=== PATIENT | male | born 1950 | race African-American/Black ===

== ENCOUNTER → 2023-11-11 15:02 | Outpatient (REF) | payer MEDICARE, OTHER, SELFPAY | LOC: RAD 15:02 | PROVIDERS: ATTENDING PHYSICIAN Orthopaedic Surgery; FAMILY PHYSICIAN Internal Medicine | DX: M54.9 Dorsalgia, unspecified (principal) | CPT/HCPCS: 71250 ==

== ENCOUNTER 2024-05-26 09:20 | Emergency (ER) | payer MEDICARE, OTHER, SELFPAY ==
[2024-05-26 09:24] VITALS: BP 143/62
--- NOTE | 2024-05-26 10:16 | ED.GENMED ---
History of Present Illness
General
Chief Complaint: Fall
Source: patient
Time Seen by Provider: 05/26/24 10:06
History of Present Illness
History of Present Illness:
74yoM with a history of atrial fibrillation on Eliquis, hypertension, chronic pain on MS Contin presenting for evaluation after a fall 1 week ago. Patient was carrying groceries when he lost his balance and fell on his left lateral rib cage. He
denies any head injuries or loss of consciousness. Patient developed bruising to the ribs after the injury. He has been having mild pain over the past week which has acutely worsened over the past 24 hours. Pain is worse with movement and
breathing. He denies any shortness of breath, headache, neck pain, back pain, abdominal pain.
Past History
Past History
ED Past Medical History: Cancer (Followed at [facility] details are unclear), HTN, Hypothyroidism and Other (PE, sleep apnea)
ED Past Surgical History: Bowel resection, Orthopedic (bilateral hip replacement), Tonsilectomy and Other
Social History
Tobacco: Other
Alcohol: Other
Drug: Other
Personal: Other
Living: other
Employment: Other
Family History
Family History: Unable to obtain
Phy Exam
General Physical Exam
General Presentation: well appearing and no apparent distress
General age: appears stated age
General Skin: warm and dry
General Habitus: normal
General Mental: alert
ENT Exam
ENT Exam: normocephalic
Additional ENT: No cervical spine tenderness
Pulmonary Exam
Pulmonary Exam: lungs clear, no respiratory distress, no rales, no crackles, no rhonchi and other (+Ecchymosis noted to L lateral ribcage with tenderness. No crepitus. Bilateral breath sounds equal. )
Gastrointestinal Exam
Gastrointestinal Exam: non tender, soft and non distended
Neurological Exam
Neurological Exam: alert
[place] Coma Scale
Eye Opening: Spontaneous
Verbal Response: Oriented
Motor Response: Obeys Commands
GCS Total Score: 15
Skin Exam
Skin Exam: normal color and warm/dry
Psychiatric Exam
Psychiatric Exam: normal mood/affect
Course
Orders/Labs/Results
Orders:
Orders
05/26/24 09:29
Ribs, Left 3 View W/PA Chest CR [CR Ribs-left 3 Vw W/pa Chest] Urgent
Comment:
Reason For Exam: fall
05/26/24 10:13
CT Chest W/o Iv Contrast Urgent
Comment:
Reason For Exam: L lateral rib pain/ecchymosis
05/26/24 12:07
Incentive Spirometry [Rx Incentive Spirometry] [RESP] Urgent
Frequency: q1h while awake
Vital Signs
Initial and Last Documented VS:
Initial Vital Signs
Temp Pulse Resp BP Pulse Ox
97.8 F 85 16 143/62 96
05/26/24 09:24 12 09:24 12 09:24 05/26/24 09:24 05/26/24 09:24
Last Documented Vital Signs
Temp Pulse Resp BP Pulse Ox
97.8 F 85 16 143/62 96
05/26/24 09:24 05/26/24 09:24 05/26/24 09:24 05/26/24 09:24 05/26/24 09:24
MDM/Problems Addressed
Differential Diagnosis Includes:
74yoM here with L rib pain x 1 week after a fall. On Eliquis. VSS. He is well-appearing in no acute distress. There is ecchymosis noted to the left lateral chest wall with associated tenderness. No crepitus. No abdominal tenderness. Bilateral
breath sounds equal. Differential diagnosis includes but is not limited to: Rib contusion, rib fracture, pneumothorax, hemothorax
Initial ED plan: Rib series x-rays obtained in triage. No clear rib fracture seen on x-rays within limitations. Due to worsening pain over the past 24 hours, will proceed with CT chest.
*Critical Care Note
Total Time (30-74mins, 75-104mins- exclusive of procedures): Not Applicable
Update Note
Update Note:
CT shows a subtle nondisplaced fracture of the anterior left third rib. No pneumo or hemothorax seen. Patient already on medications for chronic pain including MS Contin. He was advised to add lidocaine patches and Tylenol as needed. Incentive
spirometer provided. Advised follow-up with PCP and ED return precautions discussed. He was discharged in stable condition.
ED Attending Note
-
Portions of this chart may have been created with voice recognition software.� Occasional wrong word or��sound alike� substitutions may have occurred due to the inherent limitations of voice recognition software.
Discharge Plan
Departure
Patient Disposition: Home (Routine Discharge)
Date of Disposition: 05/26/24
Time of Disposition: 12:05
Patient with high blood pressure during this ER visit?: Yes
Discharge Problem:
Closed fracture of rib of left side
Instructions: Rib fracture or bruised rib - ED discharge instructions
Prescriptions:
No Action
amlodipine 5 MG tablet
5 mg PO DAILY
levothyroxine 100 MCG tablet
100 mcg PO DAILY
Patient Comments:
02/16/2020-patient picked up on 01/27/2020
montelukast 10 MG tablet
10 mg PO QPM
paroxetine HCl 10 MG tablet
20 mg PO DAILY
fluticasone furoate-vilanterol [Breo Ellipta] 1 EACH blister with device
1 ea inhalation R DAILY
nortriptyline 25 MG capsule
50 mg PO HS
pregabalin 75 MG capsule
75 mg PO DAILY
Patient Comments:
02/16/2020- patient picked up on 11/20/2019 #180
morphine 60 MG tablet extended release
60 mg PO BID
Patient Comments:
02/16/2020-patient picked up on 12/20/2019 #60
warfarin [Jantoven] 7.5 MG tablet
7.5 mg PO SUMOWETHSA
warfarin [Jantoven] 2.5 MG tablet
2.5 mg PO TUFR
morphine 30 MG tablet
30 mg PO PRN PRN (Reason: pain)
losartan-hydrochlorothiazide 1 EACH tablet
1 ea PO DAILY
sennosides-docusate sodium [Senna Plus] 1 EACH tablet
1 ea PO BID
sulfamethoxazole-trimethoprim 1 EACH tablet
1 ea PO BID
azelastine 1 SPRAY aerosol,spray
2 spray intranasal BID
tiotropium bromide [Spiriva with HandiHaler] 18 MCG capsule, w/inhalation device
18 mcg IH DAILY
vitamins A,C,T-[id number]-nwzwbf [PreserVision AREDS] 1 CAP capsule
1 mg BID
ferrous gluconate 236 MG tablet
236 mg PO DAILY
Referrals:
Marshal Jaramillo MD [Family Provider] -
Activity Restrictions/Additional Instructions:
Use incentive spirometer every hour while awake. Continue taking your home pain medications. You may also use lidocaine patches daily (12 hours on, 12 hours off) and Tylenol as needed.
Please follow-up with your family doctor. Return to the ER with any worsening symptoms.
Interventions
Interventions:
*Risk Screen - Suicide Last Done: 05/26/24 09:24
*General Assessment Last Done: 05/26/24 09:24
*Neglect/Abuse Screening Last Done: 05/26/24 09:24
*Nursing Disposition Last Done: 05/26/24 12:30
ED-Musculoskeletal Assessment Last Done: 05/26/24 10:00
ED- Neurological Assessment Last Done: 05/26/24 10:00
ED-Skin Assessment Last Done: 05/26/24 10:00
Discharge Date and Time
Discharge Date/Time: 05/26/24 12:30
Print Language: MAORI
--- NOTE | 2024-05-26 12:29 | EDRN ---
Incentive spirometer provided and pt verbalized understanding of its use prior to d/c
== END 2024-05-26 12:30 | disposition home or self-care (01) ==
LOC: EMR 09:20
PROVIDERS: EMERGENCY PHYSICIAN Emergency Medicine; FAMILY PHYSICIAN Internal Medicine
DX: S22.32XA Fracture of one rib, left side, initial encounter for closed fracture (principal); W01.0XXA Fall on same level from slipping, tripping and stumbling without subsequent striking against object, initial encounter; I48.91 Unspecified atrial fibrillation; I10 Essential (primary) hypertension; Z79.01 Long term (current) use of anticoagulants
CPT/HCPCS: 99283; 71101; 71250

== ENCOUNTER 2024-06-15 07:42 | Emergency (ER) | payer MEDICARE, OTHER, SELFPAY ==
[2024-06-15 07:42] VITALS: BMI 33.6
[2024-06-15 07:47] VITALS: BP 170/92
--- NOTE | 2024-06-15 08:19 | ED.GENMED ---
History of Present Illness
General
Chief Complaint: Abdominal Symptoms
Source: patient and spouse
Exam Limitations: none
Time Seen by Provider: 06/15/24 08:05
History of Present Illness
History of Present Illness:
74yoM with a history of prior pulmonary embolism on Eliquis, hypertension, insulin-dependent type 2 diabetes, COPD, chronic pain on opioids, and remote history of colon cancer s/p resection currently in remission presenting with his for
evaluation of vomiting. Symptoms initially began after New Years. He was constipated prior to this and states the 'dam broke' and he was having diarrhea for a few days. This has resolved and he has not had a bowel movement in the past few days. He
is now having nausea and vomiting for the past 3 days. He is vomiting up phlegm. He has been unable to keep down his medications due to his symptoms. He also reports lower abdominal discomfort. He feels very dehydrated and is urinating less than
usual. He denies any fevers, URI symptoms, shortness of breath, chest pain, hematemesis.
Past History
Past History
ED Past Medical History: Cancer (Followed at [facility] details are unclear), HTN, Hypothyroidism and Other (PE, sleep apnea)
ED Past Surgical History: Bowel resection, Orthopedic (bilateral hip replacement), Tonsilectomy and Other
Social History
Tobacco: Other
Alcohol: Other
Drug: Other
Personal: Other
Living: other
Employment: Other
Family History
Family History: Unable to obtain
Phy Exam
Physical Exam
Physical Exam:
Retching on exam, appears fatigued
General Physical Exam
General age: appears stated age
General Skin: warm and dry
General Habitus: normal
General Mental: alert
ENT Exam
ENT Exam: normocephalic
Cardiovascular Exam
Cardiovascular Exam: regular rate/rhythm
Pulmonary Exam
Pulmonary Exam: no respiratory distress, no crackles, no stridor and other (Mild expiratory wheezes)
Gastrointestinal Exam
Gastrointestinal Exam: soft, non distended and other (+Mild tenderness in LLQ. Abdomen soft, non-distended. No rebound or guarding.)
Neurological Exam
Neurological Exam: alert
[place] Coma Scale
Eye Opening: Spontaneous
Verbal Response: Oriented
Motor Response: Obeys Commands
GCS Total Score: 15
Skin Exam
Skin Exam: normal color and warm/dry
Psychiatric Exam
Psychiatric Exam: normal mood/affect
Course
Orders/Labs/Results
Orders:
Orders
06/15/24 08:17
CT Abd/pel W Iv And Oral Contr Urgent
Comment:
Reason For Exam: LLQ pain, vomiting, hx of colon resection
0.9% Sodium Chloride 1000 ml [Nss] 1,000 ml IV BOLUS
Iohexol [Omnipaque] See Protocol PO NOW STA
Ondansetron Injectable [Zofran] 4 mg IV NOW STA
06/15/24 08:18
Electrocardiogram (*1) Urgent
Reason for Study: QTc Monitoring
EKG- Treatment ONCE
06/15/24 08:37
Basic Metabolic Panel Urgent
Complete Blood Count/With Diff Urgent
Lipase Urgent
06/15/24 09:11
LFT [Hutjd-Yien-Wepwfhi] Urgent
Magnesium Urgent
Potassium Urgent
06/15/24 12:12
Electrocardiogram (*1) Urgent
Reason for Study: QTc Monitoring
EKG- Treatment ONCE
Abnormal Lab Results
06/15/24 06/15/24
08:37 09:11
Hgb 12.3 L g/dL
(13.0-18.0)
MCV 68.3 L fL
(80.0-94.0)
MCH 21.4 L pg
(27.0-31.0)
MCHC 31.4 L g/dL
(33.0-37.0)
RDW 18.5 H %
(11.5-14.5)
Lymphocytes % 20.2 L %
(20.5-51.1)
Glucose 141 H mg/dl
(70-99)
Alkaline Phosphatase 177 H U/L
(38-126)
06/15/24 08:37
06/15/24 09:11
Vital Signs
Initial and Last Documented VS:
Initial Vital Signs
Temp Pulse Resp Pulse Ox
98.9 F 78 18 98
06/15/24 07:43 06/15/24 07:43 06/15/24 07:43 06/15/24 07:43
Last Documented Vital Signs
Temp Pulse Resp BP Pulse Ox
98.2 F 69 18 146/78 99
06/15/24 10:00 06/15/24 13:15 06/15/24 13:15 06/15/24 13:15 06/15/24 13:15
MDM/Problems Addressed
Differential Diagnosis Includes:
74yoM here with vomiting x 3 days. Unable to keep down medications and feels dehydrated. Also c/o lower abd pain. He is hypertensive with otherwise normal vital signs. He is retching on exam and appears fatigued but non-toxic. No signs of
peritonitis on abdominal exam. Differential diagnosis includes but is not limited to: gastroenteritis, diverticulitis, SBO, dehydration
Initial ED plan: Check abdominal labs, magnesium, EKG, and CT abdomen with IV/PO contrast. IV Zofran and fluid bolus for symptoms.
*EKG
Interpreted by ED Provider?: Yes
EKG Intrepretation Date: 06/15/24
Heart Rate: 75
Rate: normal
Rhythm: sinus and PVC's
Cobb: normal axis
Interval: long QT (QTc 507)
QRS Pattern: normal QRS
Ischemia: no ischemia
*Critical Care Note
Total Time (30-74mins, 75-104mins- exclusive of procedures): Not Applicable
Update Note
Update Note:
Labs overall unremarkable including normal white count, electrolytes, and renal function. EKG shows normal sinus rhythm with a prolonged QTc at 507. Patient already received a dose of IV Zofran prior to EKG. CT shows new mild wall thickening of
the terminal ileum which can be seen in IBD. There is also mild diffuse bladder wall thickening although he denies any urinary symptoms. Several other incidental findings noted including pulmonary nodules and evidence of chronic pancreatitis.
Findings discussed at length with patient and and they were provided with a copy of his CT scan report. Patient follows with Karri Leavitt and receives colonoscopies every 6 months due to his history of colon cancer. He denies any prior history
of IBD and his last colonoscopy 4 months ago came back normal. Patient able to tolerate oral contrast without any vomiting. Patient feels well for discharge. Repeat EKG obtained and QTc improved to 486. Patient was given a prescription for
Zofran. Supportive care discussed. Advised close PCP follow-up and ED return precautions discussed. He was discharged in stable condition.
ED Attending Note
-
Portions of this chart may have been created with voice recognition software.� Occasional wrong word or��sound alike� substitutions may have occurred due to the inherent limitations of voice recognition software.
Discharge Plan
Departure
Patient Disposition: Home (Routine Discharge)
Date of Disposition: 06/15/24
Time of Disposition: 12:54
Patient with high blood pressure during this ER visit?: Yes
Discharge Problem:
Nausea & vomiting
Instructions: Nausea and Vomiting, Adult (DC)
Prescriptions:
New
ondansetron 4 mg tablet,disintegrating
4 mg PO Q8H PRN (Reason: nausea and vomiting) Qty: 9 0RF
No Action
amlodipine 5 MG tablet
5 mg PO DAILY
levothyroxine 100 MCG tablet
100 mcg PO DAILY
Patient Comments:
02/16/2020-patient picked up on 01/27/2020
montelukast 10 MG tablet
10 mg PO QPM
paroxetine HCl 10 MG tablet
20 mg PO DAILY
fluticasone furoate-vilanterol [Breo Ellipta] 1 EACH blister with device
1 ea inhalation R DAILY
nortriptyline 25 MG capsule
50 mg PO HS
pregabalin 75 MG capsule
75 mg PO DAILY
Patient Comments:
02/16/2020- patient picked up on 11/20/2019 #180
morphine 60 MG tablet extended release
60 mg PO BID
Patient Comments:
02/16/2020-patient picked up on 12/20/2019 #60
warfarin [Jantoven] 7.5 MG tablet
7.5 mg PO SUMOWETHSA
warfarin [Jantoven] 2.5 MG tablet
2.5 mg PO TUFR
morphine 30 MG tablet
30 mg PO PRN PRN (Reason: pain)
losartan-hydrochlorothiazide 1 EACH tablet
1 ea PO DAILY
sennosides-docusate sodium [Senna Plus] 1 EACH tablet
1 ea PO BID
sulfamethoxazole-trimethoprim 1 EACH tablet
1 ea PO BID
azelastine 1 SPRAY aerosol,spray
2 spray intranasal BID
tiotropium bromide [Spiriva with HandiHaler] 18 MCG capsule, w/inhalation device
18 mcg IH DAILY
vitamins A,C,G-gsbs-advunl [PreserVision AREDS] 1 CAP capsule
1 mg BID
ferrous gluconate 236 MG tablet
236 mg PO DAILY
Referrals:
Marshal Jaramillo MD [Family Provider] -
Activity Restrictions/Additional Instructions:
Take Zofran as needed for nausea. Drink plenty of fluids and eat a bland diet (rice, applesauce, toast).
Please follow-up with your family doctor and discuss your CT results. Return to the ER with any worsening symptoms or if you are unable to keep down fluids.
Interventions
Interventions:
*Risk Screen - Suicide Last Done: 06/15/24 07:43
*General Assessment Last Done: 06/15/24 07:43
*Neglect/Abuse Screening Last Done: 06/15/24 07:43
ED- Fall Risk Assessment Last Done: 06/15/24 09:06
*Nursing Disposition Last Done: 06/15/24 13:12
BG-Mgrgsj-Wafljxzfqy Assessment Last Done: 06/15/24 09:06
ED- Cardiac Assessment Last Done: 06/15/24 09:06
ED- Neurological Assessment Last Done: 06/15/24 09:06
ED- Pulmonary Assessment Last Done: 06/15/24 09:06
Discharge Date and Time
Discharge Date/Time: 06/15/24 13:23
Print Language: GUYANESE
[2024-06-15] MEDS: OMNIPAQUE 50 ML PO (08:30)
[2024-06-15] MEDS: ZOFRAN 4 MG IV (08:33)
[2024-06-15] MEDS: NSS 1000 IV (08:34)
[2024-06-15 08:40] VITALS: BP 190/92
[2024-06-15 09:00] VITALS: BP 212/79
[2024-06-15 09:02] VITALS: BP 179/79
[2024-06-15 09:05] LABS: % Basophils 0.3 % (0-2); % Immature Granulocytes 0.2 % (0-0.5); % Lymphocytes 20.2 % (20.5-51.1); % Monocytes 5.2 % (1.7-9.3); % Neutrophils 74.1 % (42.2-75.2); Absolute Lymphocytes 1.2 10^3/uL (1.2-3.4); Absolute Monocytes 0.3 10^3/uL (0.1-0.6); Absolute Neutrophils 4.4 10^3/uL (1.4-6.5); Hematocrit 39.2 % (39.0-52.0); Hemoglobin 12.3 g/dL (13.0-18.0); Mean Corp Hgb Conc. 31.4 g/dL (33.0-37.0); Mean Corpuscular Hgb 21.4 pg (27.0-31.0); Mean Corpuscular Volume 68.3 fL (80.0-94.0); Nucleated Red Blood Cells % 0 % (-); Platelet Count 214 10^3/uL (130-400); Red Blood Cell Count 5.74 10^6/uL (4.70-6.10); Red Cell Dist. Width 18.5 % (11.5-14.5); White Blood Cell Count 5.9 10^3/uL (4.8-10.8)
[2024-06-15 09:13] LABS: Blood Urea Nitrogen 15 mg/dl (9-20); Calcium 9.6 mg/dl (8.4-10.2); Carbon Dioxide 26 mmol/L (22-30); Chloride 102 mmol/L (98-107); Estimated Creatinine Clearance 83 ml/min; Glucose 141 mg/dl (70-99); Lipase 54 U/L (23-300); Sodium 139 mmol/L (135-145); eGFR > 60.00
[2024-06-15 09:33] LABS: ALT (SGPT) 26 U/L (0-50); AST (SGOT) 28 U/L (17-59); Albumin 4.3 g/dl (3.5-5.0); Alkaline Phosphatase 177 U/L (38-126); Potassium 3.7 mmol/L (3.5-5.1); Total Bilirubin 0.7 mg/dl (0.2-1.3); Total Protein 6.9 g/dl (6.3-8.2)
[2024-06-15 10:04] LABS: Magnesium 2.3 mg/dl (1.6-2.3)
[2024-06-15 13:15] VITALS: BP 146/78
== END 2024-06-15 13:23 | disposition home or self-care (01) ==
LOC: EMR 07:42
PROVIDERS: Physician Assistant; EMERGENCY PHYSICIAN Emergency Medicine; FAMILY PHYSICIAN Internal Medicine
DX: R11.2 Nausea with vomiting, unspecified (principal); I10 Essential (primary) hypertension; E11.9 Type 2 diabetes mellitus without complications; J44.9 Chronic obstructive pulmonary disease, unspecified; E03.9 Hypothyroidism, unspecified; G47.30 Sleep apnea, unspecified; G89.29 Other chronic pain; Z85.038 Personal history of other malignant neoplasm of large intestine; Z86.711 Personal history of pulmonary embolism; Z79.4 Long term (current) use of insulin; Z79.01 Long term (current) use of anticoagulants; Z90.49 Acquired absence of other specified parts of digestive tract; Z79.891 Long term (current) use of opiate analgesic
CPT/HCPCS: 96374; 96361; 99284; 74177; 80048; 80076; 83690; 83735; 84132; 85025; 93005; Q9967

== ENCOUNTER → 2024-10-23 09:27 | Outpatient (REF) | payer MEDICARE, OTHER, SELFPAY ==
[2024-10-23 12:12] LABS: % Basophils 0.6 % (0-2); % Immature Granulocytes 0.2 % (0-0.5); % Lymphocytes 19.2 % (20.5-51.1); % Monocytes 9.5 % (1.7-9.3); % Neutrophils 65.5 % (42.2-75.2); Absolute Eosinophils 0.3 10^3/uL (0-0.7); Absolute Lymphocytes 1.3 10^3/uL (1.2-3.4); Absolute Monocytes 0.6 10^3/uL (0.1-0.6); Absolute Neutrophils 4.3 10^3/uL (1.4-6.5); Hematocrit 29.5 % (39.0-52.0); Mean Corp Hgb Conc. 30.5 g/dL (33.0-37.0); Mean Corpuscular Hgb 19.7 pg (27.0-31.0); Mean Corpuscular Volume 64.7 fL (80.0-94.0); Nucleated Red Blood Cells % 0 % (-); Platelet Count 232 10^3/uL (130-400); Red Blood Cell Count 4.56 10^6/uL (4.70-6.10); Red Cell Dist. Width 16.7 % (11.5-14.5); White Blood Cell Count 6.6 10^3/uL (4.8-10.8)
[2024-10-23 12:15] LABS: Urine Albumin 3+ (Neg - Trace); Urine Bilirubin Negative (Negative); Urine Character Clear (Clear); Urine Color Yellow; Urine Glucose Negative (Negative); Urine Ketone Negative (Negative); Urine Leukocyte Negative (Negative); Urine Nitrite Negative (Negative); Urine Occult Blood 1+ (Negative); Urine Specific Gravity 1.015 (<1.030); Urine Urobilinogen 1+ (Neg - 1+); Urine pH 6.5 (5.0-9.0)
[2024-10-23 12:39] LABS: Urine Bacteria Few (Negative); Urine Red Blood Cell 0-2 /HPF (0-2); Urine Squamous Cell 26-30 /LPF (Few); Urine White Cell 0-2 /HPF (0-5)
[2024-10-23 12:47] LABS: ALT (SGPT) 16 U/L (0-50); AST (SGOT) 18 U/L (17-59); Albumin 3.6 g/dl (3.5-5.0); Alkaline Phosphatase 140 U/L (38-126); Blood Urea Nitrogen 14 mg/dl (9-20); Calcium 9.5 mg/dl (8.4-10.2); Carbon Dioxide 31 mmol/L (22-30); Chloride 103 mmol/L (98-107); Direct Bilirubin 0.2 mg/dl (0.0-0.4); GGTP 24 U/L (15-73); Glucose 131 mg/dl (70-99); HDL Cholesterol 33 mg/dl; LDL Cholesterol, Calculated 38 mg/dl; Sodium 142 mmol/L (135-145); Total Bilirubin 0.6 mg/dl (0.2-1.3); Total Cholesterol 86 mg/dl (50-199); Total Protein 6.6 g/dl (6.3-8.2); Triglyceride 77 mg/dl (10-149); Very Low Density Lipoprotein 15 mg/dl (0-30); eGFR > 60.00
[2024-10-24 03:09] LABS: Glycohemoglobin (HgbA1c) 7.5 % (4.0-5.6)
== END ==
LOC: HWLAB 09:27
PROVIDERS: ATTENDING PHYSICIAN Internal Medicine
DX: R55 Syncope and collapse (principal); I95.1 Orthostatic hypotension; N17.9 Acute kidney failure, unspecified; E11.9 Type 2 diabetes mellitus without complications; K74.69 Other cirrhosis of liver; G60.8 Other hereditary and idiopathic neuropathies; C18.9 Malignant neoplasm of colon, unspecified; Z86.711 Personal history of pulmonary embolism; R79.89 Other specified abnormal findings of blood chemistry; Z87.19 Personal history of other diseases of the digestive system
CPT/HCPCS: 80053; 80061; 81003; 81015; 82248; 82977; 83036; 85025

== ENCOUNTER → 2024-10-26 11:33 | Outpatient (REF) | payer MEDICARE, OTHER, SELFPAY ==
[2024-10-26 16:32] LABS: Urine Albumin 1+ (Neg - Trace); Urine Bilirubin Negative (Negative); Urine Character Clear (Clear); Urine Color Yellow; Urine Glucose Negative (Negative); Urine Ketone Negative (Negative); Urine Leukocyte Negative (Negative); Urine Nitrite Negative (Negative); Urine Occult Blood Negative (Negative); Urine Urobilinogen Negative (Neg - 1+)
[2024-10-26 16:42] LABS: % Basophils 0.7 % (0-2); % Eosinophils 7.4 % (0-6); % Immature Granulocytes 0.7 % (0-0.5); % Lymphocytes 21.6 % (20.5-51.1); % Monocytes 11.2 % (1.7-9.3); % Neutrophils 58.4 % (42.2-75.2); Absolute Basophils 0.1 10^3/uL (0-0.2); Absolute Eosinophils 0.5 10^3/uL (0-0.7); Absolute Immature Granulocytes 0.1 10^3/uL (0-0.05); Absolute Lymphocytes 1.5 10^3/uL (1.2-3.4); Absolute Monocytes 0.8 10^3/uL (0.1-0.6); Absolute Neutrophils 4.1 10^3/uL (1.4-6.5); Hematocrit 28.8 % (39.0-52.0); Hemoglobin 8.6 g/dL (13.0-18.0); Mean Corp Hgb Conc. 29.9 g/dL (33.0-37.0); Mean Corpuscular Hgb 19.6 pg (27.0-31.0); Mean Corpuscular Volume 65.6 fL (80.0-94.0); Nucleated Red Blood Cells % 0 % (-); Platelet Count 215 10^3/uL (130-400); Red Blood Cell Count 4.39 10^6/uL (4.70-6.10); Red Cell Dist. Width 16.9 % (11.5-14.5); Reticulocyte Count 1.1 % (0.4-2.8); White Blood Cell Count 7.1 10^3/uL (4.8-10.8)
[2024-10-26 16:45] LABS: Iron 34 ug/dl (49-181)
[2024-10-26 16:47] LABS: Urine Squamous Cell >30 /LPF (Few)
[2024-10-26 16:48] LABS: Urine Bacteria Few (Negative); Urine Calcium Oxalate Crystals Seen; Urine Red Blood Cell 0-2 /HPF (0-2); Urine White Cell 0-2 /HPF (0-5)
[2024-10-26 16:54] LABS: Percent Saturation 13 % (20-50); Total Iron Binding Capacity 257 ug/dl (261-462)
== END ==
LOC: HWLAB 11:33
PROVIDERS: ATTENDING PHYSICIAN Internal Medicine; REFERRING PHYSICIAN Internal Medicine
DX: D50.9 Iron deficiency anemia, unspecified (principal); R80.9 Proteinuria, unspecified
CPT/HCPCS: 36415; 81003; 81015; 83540; 83550; 85025; 85045

== ENCOUNTER 2024-11-14 09:33 | Outpatient (RCR) | payer MEDICARE, OTHER, SELFPAY ==
[2024-11-07 10:00] VITALS: BP 123/57
[2024-11-07] MEDS: INJECTAFER 265 MG IV (10:25)
[2024-11-07 11:25] VITALS: BP 135/65
[2024-11-14 09:52] VITALS: BP 138/65
[2024-11-14] MEDS: INJECTAFER 265 MG IV (10:07)
[2024-11-14 11:25] VITALS: BP 129/66
== END 2024-11-15 09:22 | disposition home or self-care (01) ==
LOC: OID 09:33
PROVIDERS: ATTENDING PHYSICIAN Internal Medicine
DX: D50.1 Sideropenic dysphagia (principal)
CPT/HCPCS: 96365; J1439

== ENCOUNTER → 2025-01-18 09:43 | Outpatient (REF) | payer MEDICARE, OTHER, SELFPAY ==
[2025-01-18 11:20] LABS: Urine Character Clear (Clear)
[2025-01-18 11:29] LABS: Urine Red Blood Cell 0-2 /HPF (0-2); Urine Squamous Cell 26-30 /LPF (Few); Urine White Cell 0-2 /HPF (0-5)
[2025-01-18 11:40] LABS: Hematocrit 35.8 % (39.0-52.0); Hemoglobin 10.4 g/dL (13.0-18.0); Mean Corp Hgb Conc. 29.1 g/dL (33.0-37.0); Mean Corpuscular Volume 72.2 fL (80.0-94.0); Nucleated Red Blood Cells % 0 % (-); Platelet Count 127 10^3/uL (130-400); Red Cell Dist. Width 20.7 % (11.5-14.5)
[2025-01-18 12:14] LABS: ALT (SGPT) 16 U/L (0-50); AST (SGOT) 19 U/L (17-59); Albumin 4.2 g/dl (3.5-5.0); Alkaline Phosphatase 127 U/L (38-126); Blood Urea Nitrogen 14 mg/dl (9-20); Calcium 9.4 mg/dl (8.4-10.2); Carbon Dioxide 30 mmol/L (22-30); Chloride 104 mmol/L (98-107); Glucose 88 mg/dl (70-99); Potassium 3.4 mmol/L (3.5-5.1); Sodium 141 mmol/L (135-145); Total Protein 6.6 g/dl (6.3-8.2); eGFR > 60.00
[2025-01-18 12:41] LABS: TSH 0.41 uIU/ml (0.47-4.68)
== END ==
LOC: REG 09:43
PROVIDERS: ATTENDING PHYSICIAN Internal Medicine
DX: R53.1 Weakness (principal); R40.4 Transient alteration of awareness; E11.9 Type 2 diabetes mellitus without complications; E03.9 Hypothyroidism, unspecified
CPT/HCPCS: 36415; 70450; 80053; 81003; 81015; 84439; 84443; 85025

== ENCOUNTER → 2025-05-24 13:07 | Outpatient (REF) | payer MEDICARE, OTHER, SELFPAY ==
[2025-05-24 14:00] LABS: Hematocrit 32.9 % (39.0-52.0); Hemoglobin 9.7 g/dL (13.0-18.0); Mean Corp Hgb Conc. 29.5 g/dL (33.0-37.0); Mean Corpuscular Volume 70.4 fL (80.0-94.0); Nucleated Red Blood Cells % 0 % (-); Platelet Count 169 10^3/uL (130-400); Red Cell Dist. Width 17.5 % (11.5-14.5)
[2025-05-24 14:28] LABS: ALT (SGPT) 16 U/L (0-50); AST (SGOT) 19 U/L (17-59); Albumin 3.9 g/dl (3.5-5.0); Alkaline Phosphatase 138 U/L (38-126); Blood Urea Nitrogen 21 mg/dl (9-20); Calcium 9.6 mg/dl (8.4-10.2); Carbon Dioxide 30 mmol/L (22-30); Chloride 100 mmol/L (98-107); Glucose 85 mg/dl (70-99); Iron 31 ug/dl (49-181); Potassium 3.9 mmol/L (3.5-5.1); Sodium 136 mmol/L (135-145); Total Protein 6.8 g/dl (6.3-8.2); eGFR 56.93
[2025-05-24 14:38] LABS: Total Iron Binding Capacity 265 ug/dl (261-462)
== END ==
LOC: REG 13:07
PROVIDERS: ATTENDING PHYSICIAN Internal Medicine
DX: I95.1 Orthostatic hypotension (principal); R53.83 Other fatigue; D64.9 Anemia, unspecified
CPT/HCPCS: 36415; 80053; 83540; 83550; 85025